=== PATIENT | female | born 1980 | race Caucasian/White ===

== ENCOUNTER 2024-12-12 13:56 | Outpatient (CLI) | payer BC, SELFPAY ==
[2024-12-12 14:14] LABS: Clue Cells No Clue Cells Seen (None Seen); Trichomonas No Trichomonas Seen (None Seen); Yeast No Yeast Seen (None Seen)
[2024-12-16 10:31] LABS: HPV Source Cervical; HPV, High Risk by TMA Not Detected
== END 2024-12-12 13:57 | disposition home or self-care (01) ==
PROVIDERS: PCP Family Medicine; Visit Provider Obstetrics & Gynecology
DX: Z12.4 Encounter for screening for malignant neoplasm of cervix (principal); Z11.3 Encounter for screening for infections with a predominantly sexual mode of transmission
CPT/HCPCS: 87210; 87491; 87591; 87624; 87625; 88141; 88142

== ENCOUNTER 2024-12-22 10:35 | Outpatient (CLI) | payer BC, SELFPAY | END 2024-12-22 10:36 | disposition home or self-care (01) | LOC: NFLDREF 12-23 01:43 | PROVIDERS: PCP Family Medicine; Referring Provider Family Medicine; Visit Provider Obstetrics & Gynecology | DX: Z13.220 Encounter for screening for lipoid disorders (principal); Z13.29 Encounter for screening for other suspected endocrine disorder | CPT/HCPCS: 80061; 84443 ==

== ENCOUNTER 2024-12-22 10:37 | Outpatient (CLI) | payer BC, SELFPAY ==
--- NOTE | 2024-12-22 10:45 | CRLHL7_ITS ---
For Patients: As a result of the Century Cures Act, medical imaging exams and procedure reports are released immediately into your electronic medical record. You may view this report before your referring provider. If you have questions, please contact your health care provider. DIGITAL DIAGNOSTIC BILATERAL MAMMOGRAM USING TOMOSYNTHESIS AND COMPUTER-AIDED DETECTION RIGHT BREAST ULTRASOUND CLINICAL HISTORY: RIGHT breast lump. COMPARISON: 10/28/2020. TECHNIQUE: Digital BILATERAL mammogram in four projections with computer-aided detection. Tomosynthesis was used in this interpretation. Real-time ultrasound imaging of RIGHT breast with imaging documentation. BREAST COMPOSITION: There are scattered areas of fibroglandular density. FINDINGS: 3D CC/MLO BILATERAL mammogram images submitted. Superficial nodular density is present in the area of palpable concern in the axillary tail of the RIGHT breast. No architectural distortion. No suspicious calcifications. Unremarkable LEFT breast. Targeted RIGHT breast ultrasound performed in the area of concern at 11 o`clock 14 cm from the nipple. In this location, there is a reddened skin nodule on clinical exam. On ultrasound, there is hypoechoic solid tissue present involving the epidermal layer measuring 7 x 7 x 12 millimeters. IMPRESSION: 7 x 7 x 12 millimeter hypoechoic nodule within the epidermal layer corresponding to a reddened skin nodule. RECOMMENDATIONS: Surgical consultation for consideration of excisional biopsy. A lay language report of this examination will be provided to the patient. BI-RADS Category 2: Benign Dictated by Abhay Gongora MD @ 12/23/2024 9:05:59 AM jj/Dictated by: Abhay Gongora MD @ 12/23/2024 9:06:00 AM (Electronically Signed)
== END 2024-12-22 10:38 | disposition home or self-care (01) ==
PROVIDERS: PCP Family Medicine; Visit Provider Obstetrics & Gynecology
DX: N63.10 Unspecified lump in the right breast, unspecified quadrant (principal)
CPT/HCPCS: 76642; 77066; G0279

== ENCOUNTER 2025-01-05 08:55 | Day surgery (SDC) | payer BC, SELFPAY ==
[2025-01-05 09:08] VITALS: BP 124/91; PULSE 72; RESP 20; TEMP 36.6; O2SAT 98
[2025-01-05 09:09] LABS: Ur HCG Qualitative* Negative (Negative)
[2025-01-05 09:12] VITALS: BMI 33.0
[2025-01-05] MEDS: LACTATED RINGERS 1000 ML 1,000 ML 100 ML IV (09:30)
[2025-01-05] MEDS: SODIUM CHLORIDE 0.9 % (FLUSH) 10 ML SYRINGE IVF (09:34)
--- NOTE | 2025-01-05 11:00 | W.PM.H&PU ---
History & Physical Update History & Physical Update H&P Reviewed and patient assessed: No changes noted
--- NOTE | 2025-01-05 11:00 | PM.GSPRC ---
Operative Note Date of procedure: 01/05/25 Indications: The patient is a 44-year-old female who had a lesion on her right breast for approximately 2 years. This has been growing slowly. Diagnostic mammogram and ultrasound showed a superficial lesion. Excisional biopsy was recommended. She underwent this in clinic on 12/23/2024. 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 Re-excision with wide margins was recommended for this type of lesion to exclude atypia or malignancy and prevent recurrence. She agreed to proceed. Procedure Description: After discussing the risks and benefits of the procedure, the patient signed informed consent.? The operative site was marked and the patient was brought to the operating room and placed on the operating table in supine position.? Care was taken to pad the patient's pressure points.?? The patient was then given sedation by anesthesia.?? The operative site was then prepped and draped in the usual sterile fashion.? A time-out was then performed. 1 cm margins were measured out around the prior incision. The area of excision measured 2 x 5 cm. No visible lesion was noted remaining. Local anesthetic was injected into the skin and subcutaneous tissue around the area of planned excision. A skin knife was then used to create an ellipse in the skin. Dissection was taken down into the subcutaneous tissue using cautery. This was done until at least 1 cm of depth was reached. The tissue was completely excised and marked with a stitch at 3 o'clock or anterior. This was sent to pathology in formalin. The wound was examined for hemostasis which appeared excellent. Deep tissue was closed with interrupted 2 0 Vicryl suture. The skin was then closed with 3-0 Vicryl dermal and 4-0 Monocryl running subcuticular suture. Sterile dressings were applied. ? The patient was then woken and transported to the recovery area in stable condition. ? The patient tolerated the procedure well. Findings: Scar from prior excision well-healed Anesthesia: MAC Surgeon: Bibi Ruby MD Estimated blood loss (mL): 5 Specimen: Other Additional Specimen Information: Right breast lesion margin re-excision, stitch 3 o'clock or anterior Condition: stable Disposition: same day
[2025-01-05] MEDS: CLINDAMYCIN 900 MG/50 ML-D5W IVPB (11:15)
[2025-01-05] MEDS: LIDOCAINE 1% MDV 20 ML INJECTION (11:45)
[2025-01-05] MEDS: BUPIVACAINE 0.25% 30 ML INJECTION (11:45)
--- NOTE | 2025-01-05 11:57 | P.ANES_ITS ---
Anesthesia Charges Start Date/Time Anesthesia Start Date: 01/05/25 Anesthesia Start Time: 11:05 Stop Date/Time Anesthesia Stop Date: 01/05/25 Anesthesia Stop Time: 11:57 Coding CPT Codes CPT Codes: ANESTH SKIN EXT/PER/ATRUNK - 12210 ([id number]) P2 - PATIENT W/MILD SYST DISEASE, QX - COMMUNITY HE[facility] NURSE SUPERVISOR SVC W/ MD MED DIRECTION, QK - INSTRUCTOR LOOPING 2-4 CNCRNT ANES PROC
--- NOTE | 2025-01-05 11:57 | W.ANESCHARGE ---
Anesthesia Charges Start Date/Time Anesthesia Start Date: 01/05/25 Anesthesia Start Time: 11:05 Stop Date/Time Anesthesia Stop Date: 01/05/25 Anesthesia Stop Time: 11:57 Coding CPT Codes CPT Codes: ANESTH SKIN EXT/PER/ATRUNK - 03533 ([id number]) P2 - PATIENT W/MILD SYST DISEASE, QX - DOPING SUPERVISOR SVC W/ MD MED DIRECTION, QK - CHIEF COMMERCIAL OFFICER 2-4 CNCRNT ANES PROC
[2025-01-05 12:01] VITALS: BP 117/87; PULSE 70; RESP 16; TEMP 36.3; O2SAT 95
--- NOTE | 2025-01-05 12:09 | P.ANES_ITS ---
Anesthesia Charges Start Date/Time Anesthesia Start Date: 01/05/25 Anesthesia Start Time: 11:05 Stop Date/Time Anesthesia Stop Date: 01/05/25 Anesthesia Stop Time: 11:57 Coding CPT Codes CPT Codes: ANESTH SKIN EXT/PER/ATRUNK - 26711 ([id number]) QK - ORDER DESK CLERK 2-4 CNCRNT ANES PROC, QX - HOOP MAKER MACHINE SVC W/ MD MED DIRECTION, P2 - PATIENT W/MILD SYST DISEASE
--- NOTE | 2025-01-05 12:09 | W.ANESCHARGE ---
Anesthesia Charges Start Date/Time Anesthesia Start Date: 01/05/25 Anesthesia Start Time: 11:05 Stop Date/Time Anesthesia Stop Date: 01/05/25 Anesthesia Stop Time: 11:57 Coding CPT Codes CPT Codes: ANESTH SKIN EXT/PER/ATRUNK - 86309 ([id number]) QK - WASTEWATER MANAGER 2-4 CNCRNT ANES PROC, QX - MONUMENT CARVER SVC W/ MD MED DIRECTION, P2 - PATIENT W/MILD SYST DISEASE
[2025-01-05 12:14] VITALS: BP 127/92; PULSE 69; RESP 16; O2SAT 97
[2025-01-05 12:36] VITALS: BP 131/83; PULSE 57; RESP 16; O2SAT 98
[2025-01-05] MEDS: HYDROCODONE-ACETAMIN 5-325 MG 1 TAB PO (12:41)
[2025-01-05 12:50] VITALS: BP 125/80; PULSE 62; RESP 16; O2SAT 97
[2025-01-05 13:01] VITALS: BP 132/86; PULSE 67; RESP 18; O2SAT 99
== END 2025-01-05 13:15 | disposition home or self-care (01) ==
PROVIDERS: PCP Family Medicine; Visit Provider Surgery
PROC: (CPT 19120; principal; 2025-01-05 10:45)
DX: D24.1 Benign neoplasm of right breast (principal)
CPT/HCPCS: 19120; 00400; 81025; 88305; J2003; A9270; J0665; J0736; J2250; J2405; J2704; J3010; J3490; J7120

== ENCOUNTER 2025-02-19 10:15 | Outpatient (RCR) | payer BC, SELFPAY ==
--- NOTE | 2025-01-23 12:11 | OT.OPOE ---
OT Outpatient Ortho Eval OT Outpatient Ortho Eval* Start: 01/23/25 11:43 Freq: Status: Active Protocol: Document 01/23/25 11:43 AMB (Rec: 01/23/25 12:07 AMB [id number]) E-signed By Kylah Kahn, OTR/L, CLT, CAN INTAKE WORKER OT OP Ortho Eval Details Complexity Complexity Low Insurance Information Insurance Information Medicaid Outpatient History/Precautions Current Condition/Medical Diagnosis Referring Provider Dr Rbuy Medical Diagnoses L90.5 Scar Conditions and fibrosis of skin Z98.890 Other specified postprocedural states Treatment Diagnosis M25.611 Stiffness of right shoulder L90.5 Scar Conditions and fibrosis of skin Date of Onset 01/05/25 Medical Conditions Metal Implants Other Conditions Metal implants of mouth. PMH (copied from medical chart ): Active Problems (Updated 12/12 @ 14:01 by Mary Robertson MD) Wellness examination (Acute) Z00.00 - Encounter for general adult medical examination without abnormal findings (ICD -10) Breast mass, right (Acute) N63.10 - Unspecified lump in the right breast, unspecified quadrant (ICD-10) IUD (intrauterine device) in place (Acute) Mirena [facility]. Z97.5 - Presence of ( intrauterine) contraceptive device (ICD-10) Chronic low back pain (Chronic ) M54.50 - Low back pain, unspecified (ICD-10) G89.29 - Other chronic pain ( ICD-10) Abnormal uterine bleeding (AUB ) (Acute) N93.9 - Abnormal uterine and vaginal bleeding, unspecified (ICD-10) Medical History (Updated 12/12 @ 14:01 by Mary Robertson MD) History of vaginal delivery Surgical History (Updated @ 09:00 by Kiersten Mccarthy) History of sleeve gastrectomy (2014) Z90.3 - Acquired absence of stomach [part of] (ICD-10) History of tonsillectomy and adenoidectomy Z90.89 - Acquired absence of other organs (ICD-10) History of cholecystectomy ( 2005) Z90.49 - Acquired absence of other specified parts of digestive tract (ICD-10) History of appendectomy (1997) Z90.49 - Acquired absence of other specified parts of digestive tract (ICD-10) Medical/Functional History Medical History Reviewed Yes Social History Employment Status [employer] Employed Current Occupation [employer] and [employer] Critical Job Demands Pull,Lift,Overhead Reach, Static Sitting Hobbies Pt has a large garden Ortho Subjective Subjective Subjective Pt states she underwent surgery on January 05 to remove a non-cancerous tumor from her right breast. Pt thought she was healing well, however, a couple of weeks ago , she started to notice some hard spots in her breast that seemed to go all the way down into her ribs. Had a f/u with Dr Ruby (surgeon) and stated that she felt they were cords which sometimes happens after breast surgery, especially if LN are removed, which pt did not have any LN removed, so this is unusual. Pt states the cords can be quite painful , especially in the evening after she takes her bra off, also has pain with pushing on them. Pt was relieved to find out that it is not anything serious and is not an infection. Pt states she also has been having pain when she reaches her arm up to retrieve things from the cupboard or sometimes when she sleeps with her arm resting on her breast or sitting in a tight area where her arm rests on her breast. Pt rates her average pain at 4/10, describes as sharp and sometime shooting pain in her right breast, axilla and sometimes into her ribcage. Goniometric Comments Goniometric Comments Goniometric Comments 01/23/25 AROM of BUE is WNL throughout with the exception of the RUE shoulder. Pt demonstrates AROM of right shoulder flexion to 160, abd to 160. ER and IR are WNL. Hand Pinch/Technical Instructor Strength Comments Comments 01/23/25 Pt demonstrates 5/5 MMT throughout BUE shoulders, elbow, wrists and hands. OT Objective Data Hand Hand Dominance Right Skin/Wounds/Edema Comments 01/23/25 Pt presents with substantial scar in her right axilla/upper, lateral breast following excision of benign breast tumor. The scar is quite thick with mild to moderate adherence. There is also cording radiating out from the incision into the right breast and is also palpable down into the right lateral superficial rib cage area. Peoplesoft Consultant is able to palpate at least 5 cords of various circumference. Cords are quite painful with palpation. OT Problems Problems Problems Decreased Range of Motion,Pain Other Problems Sleeping Patient Potential Good Assessment Assessment Assessment Pt is a very pleasant 44you referred to OT to address axillary/breast/rib cage cording following excision of benign tumor from right breast . Cording is quite tight and painful. It is actually causing decline in RUE shoulder AROM which puts pt at risk for the development of adhesive capsulitis. Pt will benefit from skilled OT intervention to address cording, scar tissue and reduced AROM in RUE shoulder in order to restore full, functional use of RUE and reduce risk for adhesive capsulitis. Home Program Home Program Home Program Initiated Home Program Specifics Provided training and practice in self-scar tissue mobilization as well as MFR/ mobilization of cording. Also provided training and practice in HEP for wall slides, seated SB with arms above head, supine open book stretch. Following demo, pt is able to complete exs with minimal cues. Pt was provided with written instructions for all exs. Certification Certification Statement I Certify That: Therapy Services Provided, Therapy Plan Established, Therapy Plan Reviewed Certification Information Clinic ID # [id number] Initial Certification Date 01/23/25 Recertification Due Date 04/23/25 Provider Signature Required Yes Provider Signature Shows Agreement With POC & Medical Necessity Physician NPI Number Write NPI# Here Physician Comment/Change Comment or Changes Physician Signature & Date Requested Please Sign/Date Here
== END 2025-06-19 23:59 | disposition home or self-care (01) ==
PROVIDERS: PCP Family Medicine; Visit Provider Surgery
DX: L90.5 Scar conditions and fibrosis of skin (principal); Z98.890 Other specified postprocedural states; Z51.89 Encounter for other specified aftercare
CPT/HCPCS: 97110; 97140; 97165; X5282